=== PATIENT | male | born 1985 | race African-American/Black ===

== ENCOUNTER 2020-04-06 03:37 | Emergency (ER) | payer OTHER ==
[~2020-04-06] VITALS: Ht 188 cm; Wt 128.8 kg
[~2020-04-06 03:37] MED LIST: COLA100C5 PO; [UNRECOGNIZED DRUG - OTHER] PO; lisinopril; vitamin d
[2020-04-06 04:37] LABS: BASO % 0.3 % (0.0-1.0); EOS # 0.1 10^3/uL (0.0-0.5); HEMATOCRIT 40.1 % (42.0-52.0); HEMOGLOBIN 12.5 g/dl (13.5-17.5); LYMPH # 3.3 10^3/uL (1.5-5.0); LYMPH % 48.9 % (24.0-44.0); MEAN CORPUSCULAR HEMOGLOBIN 26.8 pg (27.0-33.0); MEAN CORPUSCULAR HGB CONC 31.2 g/dl (32.0-36.5); MEAN CORPUSCULAR VOLUME 86.1 fl (80.0-96.0); MONO # 0.6 10^3/uL (0.0-0.8); MONO % 8.5 % (0.0-5.0); NEUTROPHILS # 2.8 10^3/uL (1.5-8.5); NEUTROPHILS % 41.2 % (36.0-66.0); PLATELET COUNT, AUTOMATED 179 10^3/uL (150-450); RED BLOOD COUNT 4.66 10^6/uL (4.30-6.10); WHITE BLOOD COUNT 6.8 10^3/uL (4.0-10.0)
[2020-04-06 05:05] LABS: ALBUMIN 4.1 GM/DL (3.2-5.2); ALT/SGPT 56 U/L (12-78); BILIRUBIN,DIRECT < 0.1 MG/DL (0.0-0.2); BILIRUBIN,TOTAL 0.3 MG/DL (0.2-1.0); BLOOD UREA NITROGEN 18 MG/DL (7-18); CALCIUM LEVEL 8.3 MG/DL (8.5-10.1); CARBON DIOXIDE LEVEL 30 MEQ/L (21-32); CHLORIDE LEVEL 112 MEQ/L (98-107); CREATININE FOR GFR 1.35 MG/DL (0.70-1.30); GLOMERULAR FILTRATION RATE > 60.0 (>60); GLUCOSE, FASTING 116 MG/DL (70-100); POTASSIUM SERUM 3.4 MEQ/L (3.5-5.1); SODIUM LEVEL 146 MEQ/L (136-145)
[2020-04-06 05:06] LABS: LIPASE 122 U/L (73-393)
[2020-04-06] MEDS ORDERED: NS 1,000 ML IV ONE (05:15)
[2020-04-06] MEDS ORDERED: ONDANSETRON 4MG/2ML VIAL IV ONE (05:15)
[2020-04-06] MEDS ORDERED: MORPHINE 4 MG/ML 1ML VIAL/SYRINGE (J2270) IV PRN (05:15)
[2020-04-06] MEDS ORDERED: ISOVUE-370 76% 100ML VIAL As Ordered ONE (05:24)
--- NOTE | 2020-04-06 06:42 | REPVR ---
PROCEDURE INFORMATION: Exam: CT Abdomen And Pelvis With Contrast Exam date and time: 04/06/2020 5:19 AM Age: 35 years old Clinical indication: Abdominal pain; Localized; Right lower quadrant (rlq); Additional info: Rlq abd pain TECHNIQUE: Imaging protocol: Computed tomography of the abdomen and pelvis with intravenous contrast. Radiation optimization: All CT scans at this facility use at least one of these dose optimization techniques: automated exposure control; mA and/or kV adjustment per patient size (includes targeted exams where dose is matched to clinical indication); or iterative reconstruction. Contrast material: ISO; Contrast volume: 100 ml; Contrast route: INTRAVENOUS (IV); COMPARISON: No relevant prior studies available. FINDINGS: Lungs: Trace dependent airspace disease. Liver: No focal hepatic mass. Gallbladder and bile ducts: No cholelithiasis or biliary ductal dilatation. Pancreas: No pancreatic mass or ductal dilatation. Spleen: No splenomegaly. Adrenal glands: Unremarkable adrenals. Kidneys and ureters: Mild right hydronephrosis in association with a 1 mm right ureteral calculus at the level of the pelvic inlet. Mild right perinephric fluid. 1.5 cm left renal cyst. Stomach and bowel: Dilated fluid-filled stomach and mild antral wall thickening. No significant small bowel dilatation. Prominent stool. Appendix: No acute appendicitis. Intraperitoneal space: No significant free fluid. Vasculature: Normal caliber of the abdominal aorta. Lymph nodes: Subcentimeter lymph nodes. Urinary bladder: Normal bladder morphology. Reproductive: Punctate prostate calcification. Bones/joints: Transitional vertebra at the lumbosacral junction. Mild degenerative change. Soft tissues: Fat containing umbilical hernia. IMPRESSION: 1. Mild right hydronephrosis in association with a 1 mm right ureteral calculus at the level of the pelvic inlet. 2. Additional findings as described above. COMMENTS: Consistent with the [employer]'s Incidental Findings Committee white paper (J Am Kiley [employer]iol 2018): Any incidental renal lesion less than 1 cm or classified as too small to characterize, or any incidental cystic renal lesion characterized as simple-appearing, is likely benign. No follow-up imaging is recommended for these lesions per consensus recommendations based on imaging criteria. Electronically signed by: Corky Khan On 04/06/2020 06:42:47 AM
[2020-04-06] MEDS ORDERED: KETOROLAC 30 MG/ML 1ML VIAL IV ONE (07:30)
[2020-04-06] MEDS ORDERED: TAMSULOSIN 0.4 MG CAP PO ONE (07:30)
[2020-04-06] MEDS ORDERED: KETO10TAB PO (08:12)
[2020-04-06] MEDS ORDERED: FLOM0.4C39 PO (08:13)
[2020-04-06 08:41] VITALS: BP 151/92
== END 2020-04-06 08:50 | disposition home or self-care (01) ==
LOC: M ED 03:37
DX: N20.1 Calculus of ureter (principal); N13.39 Other hydronephrosis; R11.2 Nausea with vomiting, unspecified; Z79.899 Other long term (current) drug therapy
CPT/HCPCS: 74177; 80048; 80076; 81001; 83690; 85025; 93041; 96361; 96374; 96375; 99284; J1885; J2270; J2405; Q9967

== ENCOUNTER 2022-11-01 19:01 | Emergency (ER) | payer OTHER ==
[~2022-11-01] VITALS: Ht 188 cm; Wt 108.4 kg
[2022-11-01 19:01] VITALS: BP 158/80; TEMP 98.9; O2SAT 100
[~2022-11-01 19:01] MED LIST changes: +FLOM0.4C39 PO; +KETO10TAB PO
[2022-11-01] MEDS ORDERED: LIDOCAINE 5% (LIDODERM) PATCH TD ONE (23:45)
[2022-11-01] MEDS ORDERED: KETOROLAC 30 MG/ML 1ML VIAL IM ONE (23:45)
[2022-11-01] MEDS ORDERED: CYCLOBENZAPRINE 10MG TABLET PO ONE (23:45)
[2022-11-02] MEDS ORDERED: KETO10TAB PO (00:34)
[2022-11-02] MEDS ORDERED: LIDO5DIS41 TD (00:34)
[2022-11-02] MEDS ORDERED: CYCL-707 PO (00:34)
== END 2022-11-02 00:51 | disposition home or self-care (01) ==
LOC: M ED 19:01
DX: M50.80 Other cervical disc disorders, unspecified cervical region (principal); M47.812 Spondylosis without myelopathy or radiculopathy, cervical region; M62.838 Other muscle spasm
CPT/HCPCS: 72125; 96372; 99282; J1885

== ENCOUNTER → 2022-12-10 | Outpatient (CLI) | payer OTHER ==
[~2022-12-10] MED LIST changes: +CYCL-707 PO; +GASTROGRAFIN SOLUTION 30ML As Ordered ONE; +LIDO5DIS41 TD
== END ==
LOC: M RAD 13:27
PROVIDERS: ATTEND Nurse Practitioner Family
DX: R10.811 Right upper quadrant abdominal tenderness (principal)
CPT/HCPCS: 71250; 74160; Q9963

== ENCOUNTER → 2023-07-21 | Outpatient (REF) | payer OTHER ==
[~2023-07-21] MED LIST changes: -GASTROGRAFIN SOLUTION 30ML As Ordered ONE
[2023-07-21 18:05] LABS: Trichomonas vaginalis (AMP) NOT DETECTED (NEGATIVE)
[2023-07-21 18:29] LABS: GC DNA AMPLIFICATION NEGATIVE (NEGATIVE)
== END ==
LOC: M LAB REF 16:18
PROVIDERS: ATTEND Physician Assistant
DX: Z20.2 Contact with and (suspected) exposure to infections with a predominantly sexual mode of transmission (principal); Z11.3 Encounter for screening for infections with a predominantly sexual mode of transmission